=== PATIENT | female | born 1940 | race Caucasian/White ===

== ENCOUNTER 2016-12-17 15:33 | Emergency (ER) | payer MEDICARE, BC ==
--- NOTE | ~2016-12-17 | CR132 ---
[facility] A Service of [facility] RADIOLOGY TEXT RESULTS PATIENT: MALISSA FLORES LOCATION: CFTX : 42 UNIT #: [id number] AGE: [address]: Yulia Holloway SEX: F ORDER DR: [id number] [facility] [address] [place], [place] [address] [id number] E MR#: [id number] Acc #: [id number] NAME: MALISSA FLORES : 1940 SEX: F STUDY DATE/TIME: 12/17/2016 16:03 UNIT: [facility] ROOM: STUDY DESCRIPTION: CR Forearm 2 View Lt Attending Physician: Yulia Holloway P.A.-C. Ordering Physician: Yulia Holloway P.A.-C. Primary Care Physician: Primary Care Physician No MEDICAL IMAGING REPORT This report is preliminary unless electronic signature is present EXAM Left forearm 2 views, 12/17/2016 HISTORY Fell today, pain. FINDINGS Two views were obtained. The bony elements appear intact and in normal alignment. No fractures are identified. There is osteopenia. CONCLUSION Osteopenia, otherwise negative. Dictated by... Mateo Gonzalez M.D. THIS IS AN ELECTRONICALLY VERIFIED REPORT Mateo Gonzalez M.D. at 12/19/2016 3:10 PM OWEN/shania TD: 12/17/2016 23:27 JOB #: [id number] MEDICAL IMAGING REPORT Page 1 of 1 COPY
--- NOTE | ~2016-12-17 | CR93 ---
[facility] A Service of [facility] & [facility] RADIOLOGY TEXT RESULTS PATIENT: MALISSA FLORES LOCATION: CFTX : 42 UNIT #: [id number] AGE: [address]: Yulia Holloway SEX: F ORDER DR: [id number] [facility] [address] [place], [place] [address] [id number] E MR#: [id number] Acc #: [id number] NAME: MALISSA FLORES : 1940 SEX: F STUDY DATE/TIME: 12/17/2016 16:01 UNIT: [facility] ROOM: STUDY DESCRIPTION: CR Elbow Min 3 Views Lt Attending Physician: Yulia Holloway P.A.-C. Ordering Physician: Yulia Holloway P.A.-C. Primary Care Physician: Primary Care Physician No MEDICAL IMAGING REPORT This report is preliminary unless electronic signature is present EXAM Left elbow, total of 4 views HISTORY Fall. FINDINGS 3 views of the elbow are submitted. There are some marginal hypertrophic changes around the olecranon. The underlying bony elements otherwise are intact. No fractures and no joint effusion is seen. CONCLUSION Marginal hypertrophic changes. No acute fractures. Dictated by... Mateo Gonzalez M.D. THIS IS AN ELECTRONICALLY VERIFIED REPORT Mateo Gonzalez M.D. at 12/19/2016 3:10 PM OWEN/drew TD: 12/17/2016 23:25 JOB #: [id number] MEDICAL IMAGING REPORT Page 1 of 1 COPY
--- NOTE | ~2016-12-17 | CR285 ---
[facility] A Service of [facility] RADIOLOGY TEXT RESULTS PATIENT: MALISSA FLORES LOCATION: CFTX : 42 UNIT #: [id number] AGE: [address]: Yulia Holloway SEX: F ORDER DR: [id number] [facility] [address] [place], [place] [address] [id number] E MR#: [id number] Acc #: [id number] NAME: MALISSA FLORES : 1940 SEX: F STUDY DATE/TIME: 12/17/2016 16:03 UNIT: [facility] ROOM: STUDY DESCRIPTION: CR Wrist W Navicular Min 3 Lt Attending Physician: Yulia Holloway P.A.-C. Ordering Physician: Yulia Holloway P.A.-C. Primary Care Physician: Primary Care Physician No MEDICAL IMAGING REPORT This report is preliminary unless electronic signature is present STUDY Left wrist, total of 4 views HISTORY Fell today with wrist pain. FINDINGS 3 views are submitted. On a single view, there appears to be a small cortical stepoff. I think that this is probably physiologic. Bony elements appear intact. No fractures are identified. CONCLUSION Negative. Dictated by... Mateo Gonzalez M.D. THIS IS AN ELECTRONICALLY VERIFIED REPORT Mateo Gonzalez M.D. at 12/19/2016 3:10 PM OWEN/drew TD: 12/17/2016 23:27 JOB #: [id number] MEDICAL IMAGING REPORT Page 1 of 1 COPY
[~2016-12-17 15:33] MED LIST: AL-MAG HYDROX-S30 M1 PO; ALENDRONATE SOD70 MG PO; ASPIRIN PO; ASPIRIN81 M2 PO; ATORVASTATIN CA10 MG PO; AVAPRO150 MG PO; AVAPRO300 M1 PO; BREO ELLIPTA 11 EACH INH; BREO ELLIPTA I1 EACH INH; COLACE PO; HYDROCODON-ACE1 EAC7 PO; IBUPROFEN800 MG PO; IRBESARTAN75 MG PO; LIPITOR20 MG PO; METOPROLOL SUCC50 MG PO; NEBULIZER; OMEPRAZOLE20 M1 PO; OMEPRAZOLE40 M1 PO; TUDORZA PRESS400 MCG IH; VICODIN PO; VITAMIN D2000 UNI1 PO; VITAMIN D2000 UNIT PO; VITAMIN D32000 UNI1 PO
== END 2016-12-17 17:13 | disposition home or self-care (01) ==
LOC: CFTX 15:33
DX: S63.502A Unspecified sprain of left wrist, initial encounter (principal); S53.402A Unspecified sprain of left elbow, initial encounter; F17.210 Nicotine dependence, cigarettes, uncomplicated; W19.XXXA Unspecified fall, initial encounter; Y92.009 Unspecified place in unspecified non-institutional (private) residence as the place of occurrence of the external cause
CPT/HCPCS: 29125; 73080; 73090; 73110; 93880; 93923; 99284

== ENCOUNTER → 2017-06-17 | Outpatient (CLI) | payer MEDICARE, BC ==
--- NOTE | ~2017-06-17 | US37 ---
[facility] A Service of [facility] RADIOLOGY TEXT RESULTS PATIENT: MALISSA FLORES LOCATION: CNIV : 42 UNIT #: [id number] AGE: [address]: Hayley Johnson SEX: F ORDER DR: [id number] [facility] [address] [place], [place] [address] [id number] O MR#: [id number] Acc #: [id number] NAME: MALISSA FLORES : 1940 SEX: F STUDY DATE/TIME: 06/17/2017 10:49 UNIT: [facility]IV ROOM: STUDY DESCRIPTION: US Carotid W/Doppler Bilateral Attending Physician: Hayley Johnson A.P.R.N. Referring Physician: Hayley Johnson A.P.R.N. Ordering Physician: Hayley Johnson A.P.R.N. Primary Care Physician: Charley Tirado M.D. MEDICAL IMAGING REPORT This report is preliminary unless electronic signature is present EXAM Bilateral carotid duplex HISTORY Carotid bruits bilaterally. FINDINGS Duplex imaging of the carotid arteries was performed. Plaque is seen in the right distal common carotid artery and proximal internal and external carotid arteries which is hyperechoic. Velocity in the right common carotid artery is 69, internal is 93 proximally, 124 mid portion and 102 distally. External is 151 cm/sec. Right ICA/CCA ratio is 1.8. On the left side hyperechoic and heterogeneous plaque is seen in the left proximal internal and external carotid arteries. Velocity in the left common carotid is 79, internal is 97 and external is 154 cm/sec. Left ICA/CCA ratio is 1.3. External carotid velocity is 154 cm/sec. Antegrade flow is seen in the right and left vertebral arteries. IMPRESSION Plaque with less than 50% stenosis is seen in the right and left internal carotid arteries. Antegrade flow is seen in the right and left vertebral arteries. Dictated by... Niko Benoit [facility] A Service of [facility] RADIOLOGY TEXT RESULTS PATIENT: MALISSA FLORES LOCATION: CNIV : 42 UNIT #: [id number] AGE: [address]: Hayley Johnson SEX: F ORDER DR: TD: 06/18/2017 03:47 JOB #: [id number] MEDICAL IMAGING REPORT Page 1 of 1
== END | disposition home or self-care (01) ==
LOC: CNIV 09:59
DX: R09.89 Other specified symptoms and signs involving the circulatory and respiratory systems (principal); I65.23 Occlusion and stenosis of bilateral carotid arteries
CPT/HCPCS: 93880